=== PATIENT | female | born 1995 | race Caucasian/White ===

== ENCOUNTER 2017-03-30 15:02 | Emergency (ER) | payer OTHER ==
[~2017-03-30] VITALS: Ht 157.5 cm; Wt 60.0 kg
[2017-03-30 15:17] VITALS: BP 107/73; PULSE 118; RESP 18; TEMP 98.7; O2SAT 100
[2017-03-30] MEDS ORDERED: MORPHINE SULFATE 2 MG/ML INJ IV PUSH ONE (16:15)
[2017-03-30] MEDS ORDERED: ONDANSETRON HCL 4 MG/2 ML VIAL IV PUSH ONE (16:15)
[2017-03-30] MEDS ORDERED: TETANUS/DIPHTHERIA TOXOID ADULT 0.5 ML VIAL IM ONE (16:15)
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
[2017-03-30] MEDS ORDERED: NORC5TAB PO (17:25)
== END 2017-03-30 18:11 | disposition home or self-care (01) ==
LOC: NEPE 15:02
DX: S30.811A Abrasion of abdominal wall, initial encounter (principal); S50.312A Abrasion of left elbow, initial encounter; S50.311A Abrasion of right elbow, initial encounter; M25.572 Pain in left ankle and joints of left foot; M54.5 Low back pain; M79.644 Pain in right finger(s); V29.9XXA Motorcycle rider (driver) (passenger) injured in unspecified traffic accident, initial encounter; Z23 Encounter for immunization
CPT/HCPCS: 72131; 73130; 73610; 90471; 90714; 96374; 96375; 99285; J2270; J2405